=== PATIENT | male | born 1960 | race Caucasian/White ===

== ENCOUNTER 2023-12-06 10:22 | Day surgery (SDC) | payer OTHER, SELFPAY ==
[2023-11-30 08:25] VITALS: BMI 24.5
[2023-11-30 09:15] LABS: INR 3.01; PT 31.2 Sec (11.4-14.6)
[2023-11-30 09:36] LABS: % Basophils 0.4 % (0-2); % Eosinophils 1.4 % (0-6); % Immature Granulocytes 0.4 % (0-0.5); % Lymphocytes 25.9 % (20.5-51.1); % Monocytes 6.7 % (1.7-9.3); % Neutrophils 65.2 % (42.2-75.2); Absolute Eosinophils 0.1 10^3/uL (0-0.7); Absolute Lymphocytes 1.5 10^3/uL (1.2-3.4); Absolute Monocytes 0.4 10^3/uL (0.1-0.6); Absolute Neutrophils 3.7 10^3/uL (1.4-6.5); Hematocrit 47.6 % (39.0-52.0); Hemoglobin 16.3 g/dL (13.0-18.0); Mean Corp Hgb Conc. 34.2 g/dL (33.0-37.0); Mean Corpuscular Hgb 31.5 pg (27.0-31.0); Mean Corpuscular Volume 91.9 fL (80.0-94.0); Mean Platelet Volume 10.8 fL (7.4-10.4); Nucleated Red Blood Cells % 0 % (-); Platelet Count 189 10^3/uL (130-400); Red Blood Cell Count 5.18 10^6/uL (4.70-6.10); Red Cell Dist. Width 13.2 % (11.5-14.5); White Blood Cell Count 5.7 10^3/uL (4.8-10.8)
[2023-11-30 09:41] LABS: ALT (SGPT) 37 U/L (0-50); AST (SGOT) 37 U/L (17-59); Albumin 4.8 g/dl (3.5-5.0); Alkaline Phosphatase 58 U/L (38-126); Blood Urea Nitrogen 20 mg/dl (9-20); Calcium 9.8 mg/dl (8.4-10.2); Carbon Dioxide 27 mmol/L (22-30); Chloride 106 mmol/L (98-107); Estimated Creatinine Clearance 96 ml/min; Glucose 89 mg/dl (70-99); Magnesium 2.1 mg/dl (1.6-2.3); Potassium 4.3 mmol/L (3.5-5.1); Sodium 146 mmol/L (135-145); Total Bilirubin 1.3 mg/dl (0.2-1.3); Total Protein 7.7 g/dl (6.3-8.2); eGFR > 60.00
[2023-12-06] VITALS (26 sets, daily range): BP systolic 81–126; BP diastolic 52–111; BMI 24.5
[2023-12-06 10:53] LABS: INR 2.41; PT 26.1 Sec (11.4-14.6)
[2023-12-06 17:34] LABS: ACT-LR - POC 210 Seconds (116-155)
--- NOTE | 2023-12-06 17:57 | ITS.CL.ABL ---
Nutritional Health Coach - Ablation
Ablation
Procedure Report:
ELECTROPHYSIOLOGIC STUDY AND POSSIBLE ABLATION
DATE: December 06, 2023
Primary Care Provider: Dr Francisco Baires
Primary Sizing End Bander: Dr. Beny House
INDICATION:
Symptomatic atrial tachycardia.
He has a complex cardiovascular history. This includes:
�������- 06/20 PVI + right atrial flutter ablation
�������- 11/20 CAFE and LA tachycardia ablation with no recurrent arrhythmias for approx 2 years off AAD Rx
�������- 06/22 MV repair and septal myectomy in the setting of worsening MR with HOCM
�������- 06/22 Redo sternotomy and [place] MV replacement for post MV repair mod-severe MR and BENY
�������- Recurrent AF and AT (left atrial) after redo sternotomy, CV'ed 08/22 at which time amio was started and CV'ed again 09/13/14
�������- Amiodarone was discontinued December 2014 but he recurred with atrial tachycardia Feb 2015 and was placed on dronederone. He did well for a short period of time, but more recently he has begun having higher burden of symptomatic atrial
fibrillation and atrial tachycardia and has required several cardioversions.
�������He returned to the laboratory on March 09, 2017 when he was found to have left atrial tachycardia. He underwent mapping and ablation. During elective physiologic study he was given escalating dose isoproterenol and programmed electrical
stimulation was performed but no arrhythmias could be induced in the baseline state.
HISTORY: See H and P.
Symptomatic AT, poorly controlled with attempted medical therapy
HAS-BLED: 1
Age
CHADSVASc: 0 (he has mechanical Mitral Valve and HOCM)
PRESENTING RHYTHM: AT
HISTORY: See H and P.
Symptomatic AF, poorly controlled with attempted medical therapy.
ANTIARRHYTHMIC DRUG: Dronederone
ANTICOAGULATION: warfarin with goal INR 2.5 - 3.5
'TIME-OUT': called and confirmed.
SEDATION/ANESTHESIA: provided via the anesthesia department using general anesthesia.
PROCEDURE:
Ultrasound Guidance performed by mi was utilized for femoral venous Vascular Access b/l.
A decapolar CS catheter was placed within the CS for mapping and pacing.
The intracardiac ultrasound catheter was positioned in the RA for continuous intracardiac ultrasound imaging.
Heparin bolus and infusion to target ACT at 300 -350 seconds was administered. Transseptal puncture was performed. This entailed advancing a sheath with dilator into the superior vena cava and withdrawing both (monitoring intracardiac ultrasound,
fluoroscopy and tip pressure) with the tip oriented toward the atrial septum. The fossa ovalis was engaged (indicated by sudden displacement of the sheath tip as well as tenting of the fossa seen on intracardiac ultrasound).
RF transseptal system was used. Left atrial catheter position was confirmed by echocardiographic imaging and fluoroscopy. Pressure monitoring demonstrating LA pressure waveforms (LA mean pressure 11 mm Hg).
Mapping was performed with the Haloband multipolar grid catheter. Activation mapping as well as entrainment mapping defines counterclockwise mitral annular flutter rotating around the mechanical mitral valve.
RF ablation catheter was then substituted for the multipolar mapping catheter. RF energy was delivered in a line from the base of the left atrial appendage down to the mitral valve annulus. This slowed the flutter cycle length from 240 to 250 ms
without a change in the endocardial activation sequence. However surface ECG atrial electrogram changed. Additional RF application was delivered from the left inferior pulmonary vein down to the mitral valve annulus and also RF applications were
delivered along the ridge between the left sided pulmonary veins and in the left atrial appendage targeting the area of the ligament of Bernard which showed marked fractionation during mapping. There is no change in cycle length or activation
sequence. Remapping with the multipolar catheter found in absence of endocardial voltages at the mitral valve annulus yet activation continue to rotate counterclockwise ' jumping' the a line of ablation. It is felt that at this point activation
was occurring epicardially along the ablation line.
At previous ablation there was left atrial dome/roof ablation performed yet mapping now shows reconnection. The Farawave PFA ablation catheter was then substituted and pulse electric field energy was delivered to the dome and upper portion of the
posterior wall of the left atrium to isolate the roof and upper portion of the posterior wall of the left atrium. Additional PFA energy was delivered to the bello between the left superior and left inferior pulmonary vein as there is evidence of
electrical reconnection. Additional PFA was delivered at the area of the left superior and left inferior pulmonary vein towards the ridge and down towards the mitral valve annulus but there is no change in the tachycardia.
Catheters were then withdrawn from the left atrium.
The coronary sinus was then engaged with the ablation catheter and attempts were made to advance the ablation catheter adjacent to the endocardial line of mitral valve annular ablation. Despite multiple attempts in the use of different sheaths the
catheter could not advance to this area as the coronary sinus rapidly tapered prior to advancing to this distal location. No ablation was performed within the coronary sinus.
Cardioversion then restored sinus rhythm
I.C.E. :
Pre-Ablation Post-Ablation
LVEF: 55 % 55 %
WMA: none none
Pericardial effusion: none none
COMPLICATIONS:
none
SUMMARY:
- Reisolation of the pulmonary veins at the left PV bello
- Additional lesion set to include ablation of the left atrial posterior wall.
- Mapping and ablation of second tachycardia, mitral valve annular flutter
- 3-D Electroanatomical Mapping
- Intracardiac Ultrasound
Post ablation, I discussed today's findings and results with the patient's , Jamila.
RECOMMENDATIONS:
- Observe in monitored bed.
- Maintain oral anticoagulation.
- Discontinue dronederone and observe off antiarrhythmic drug. If he recurs, can consider dofetilide prior to moving towards amiodarone.
- Continue cardiovascular care with Dr House
Copy to:
Dr Francisco Baires
Dr. Beny House
[2023-12-06] MEDS: NEO-SYNEPHRINE 250 IV (18:29)
--- NOTE | 2023-12-06 18:30 | PTCARENOTE ---
Dr Garcia at bedside speaking to pt. Aware that rex gtt has been started as per anesthesia. Currently @ 50 mcg/min. Will wean gtt as able keeping MAP >65 as per .
[2023-12-06] MEDS: LASIX 40 MG IV (18:31)
--- NOTE | 2023-12-06 20:00 | PTCARENOTE ---
Pt with urge to void but unable to. Bladder scan showing 639 ml despite recent straight cath at 1855. Dr Augie Garcia called and order received to place spencer catheter.
--- NOTE | 2023-12-06 20:41 | PTCARENOTE ---
received the patient from the laborer/grade check. AAOx3. SR on tele 60s-70s. bp 91/66. patient states feeling well. bedrest. R groin figure 8 sutures intact. dressing CDI. + pulses/no edema. reviewed plan of care with patient and spouse at the bedside. Spencer
placed by laborer/grade check nurse. verified with Dr. Bruno on d/c time of spencer catheter. okay to d/c at 10pm when patient is off bedrest.
[2023-12-06] MEDS: LIPITOR 10 MG PO (21:16)
--- NOTE | 2023-12-06 21:41 | PTCARENOTE ---
Right groin figure of 8 sutures removed with no issues. gauze/Tegaderm applied.
--- NOTE | 2023-12-06 23:14 | PTCARENOTE ---
tj d/c'd per order. patient oob to the BR. steady on his feet. denies any lightheadedness/dizziness. HR 70. bp 90/68 (77). R groin site stable. educated patient to inform RN with any changes overnight. call mejias within reach.
[2023-12-07] VITALS: BP 76/62
[2023-12-07 00:01] VITALS: BP 85/57
[2023-12-07 03:00] VITALS: BP 98/74
[2023-12-07 04:00] VITALS: BP 89/57
[2023-12-07 04:35] LABS: Hematocrit 38.6 % (39.0-52.0); Hemoglobin 13.3 g/dL (13.0-18.0); Mean Corp Hgb Conc. 34.5 g/dL (33.0-37.0); Mean Corpuscular Hgb 31.4 pg (27.0-31.0); Mean Platelet Volume 10.9 fL (7.4-10.4); Platelet Count 161 10^3/uL (130-400); Red Blood Cell Count 4.24 10^6/uL (4.70-6.10); Red Cell Dist. Width 13.4 % (11.5-14.5); White Blood Cell Count 8.2 10^3/uL (4.8-10.8)
[2023-12-07 04:43] LABS: INR 3.21; PT 32.8 Sec (11.4-14.6)
[2023-12-07 05:03] LABS: Blood Urea Nitrogen 25 mg/dl (9-20); Calcium 8.4 mg/dl (8.4-10.2); Carbon Dioxide 22 mmol/L (22-30); Chloride 108 mmol/L (98-107); Estimated Creatinine Clearance 96 ml/min; Glucose 153 mg/dl (70-99); Magnesium 1.8 mg/dl (1.6-2.3); Sodium 142 mmol/L (135-145); eGFR > 60.00
[2023-12-07 05:09] LABS: Potassium 4.5 mmol/L (3.5-5.1)
--- NOTE | 2023-12-07 06:39 | PTCARENOTE ---
no urine output since spencer catheter removed. patient denies any discomfort. bladder scan 225. patient ambulating in room independently. no lightheadedness/dizziness. R groin site stable.
[2023-12-07 07:22] VITALS: BP 105/76
--- NOTE | 2023-12-07 08:13 | W.PN.CARDCBS ---
Addendum entered and electronically signed by Cezar Garcia MD 12/07/23 10:49:
Patient seen, interviewed and examined by me.
Well-appearing, no acute distress
Regular rate and rhythm with Mech S1, normal S2, no S3 no S4. There is a grade 1/6 apical holosystolic murmur and no rubs. PMI is normally placed.
Lungs are clear to auscultation bilaterally without wheezes rales or rhonchi.
Abdomen soft nontender nondistended with normoactive bowel sounds
Extremities show trace pretibial edema bilaterally no clubbing or cyanosis.
Neurologic exam is grossly nonfocal.
Telemetry since his ablation and cardioversion has demonstrated sinus rhythm with some atrial ectopy. There has been no recurrence of atrial flutter or atrial tachycardia.
I had a long discussion with the patient today regarding yesterday's electrophysiologic findings as well as ablation results. We discussed in detail that we were unable to completely interrupt the mitral valve annular flutter circuit as
described in the ablation note. I am hopeful that modification in this area as well as additional ablation in the left atrium will result in a reduced likelihood of recurrence of atrial arrhythmias. I prefer we stop dronedarone and observe off
antiarrhythmic drug therapy. Should he recur with atrial arrhythmias I do not think dronedarone would be all that useful as it has not been very useful in the past. We could try amiodarone. We could investigate the use of a type Ic agent. The
concern however being that he does have hypertrophic cardiomyopathy history. If wall thickness is less than 1.5 cm and QT interval allows we could consider a type Ic drug During inpatient drug loading.
He understands to maintain warfarin with goal INR between 2.5 and 3.5.
All of his questions have been answered and he is stable for discharge to home today.
I also have communicated all of this to his primary haz tech, Dr. House.
Original Note:
Today's Communication / Plan
-
post redo ablation
stable for d/c home
Impression / Plan
-
Primary Care Provider: Dr Francisco Baires
Primary Beam Machine Operator: Dr. Omega House
Impression:
Symptomatic atrial tachycardia
- 06/20 PVI + right atrial flutter ablation
������ �- 11/20 CAFE and LA tachycardia ablation with no recurrent arrhythmias for approx 2 years off AAD Rx
������ �- 06/22 MV repair and septal myectomy in the setting of worsening MR with HOCM
��� ����- 06/22 Redo sternotomy and [facility] MV replacement for post MV repair mod-severe MR and OMEGA
���� ��- Recurrent AF and AT (left atrial) after redo sternotomy, CV'ed 08/22 at which time amio was started and CV'ed again 09/13/14
-02/2017 LA tachycardia ablation
LBBB
HTN
Hyperlipidemia
Pulmonary HTN
HOCM with surgical repair (see above)
Plan:
post redo PVI, PW and MV flutter ablation 12/06/23
urinary retention post procedure, spencer removed at 10pm last night, voided 125cc this am
groin stable
tele SR 1deg AVB, LBBB, occ PVC's
Continue OAC warfarin with goal INR 2.5 - 3.5, INR 3.21 this am
Stop Multaq
Activity restrictions reviewed
f/u Dr. House in 1 mo
Home today
Progress Note - Beam Machine Operator
Subjective
Date of Service: December 07, 2023
denies cp, sob, voiding this am
Objective
Labs:
12/07/23 04:06
12/07/23 04:06
Labs
Hgb 13.3 g/dL (13.0-18.0) 12/07/23 04:06
Hct 38.6 % (39.0-52.0) L 12/07/23 04:06
Plt Count 161 10^3/uL (130-400) 12/07/23 04:06
PT 32.8 Sec (11.4-14.6) H 12/07/23 04:06
INR 3.21 12/07/23 04:06
Sodium 142 mmol/L (135-145) 12/07/23 04:06
Potassium 4.5 mmol/L (3.5-5.1) 12/07/23 04:06
BUN 25 mg/dl (9-20) H 12/07/23 04:06
Creatinine 0.8 mg/dL (0.7-1.3) 12/07/23 04:06
Glucose 153 mg/dl (70-99) H 12/07/23 04:06
Vital Signs and I&O:
Vital Signs
Temp Pulse Resp BP Pulse Ox
98.4 F 73 18 105/76 97
12/07/23 04:14 12/07/23 07:30 12/07/23 04:14 12/07/23 07:22 12/07/23 07:30
Vital Signs
Temp Pulse Resp BP Pulse Ox
98.4 F 73 18 105/76 97
12/07/23 04:14 12/07/23 07:30 12/07/23 04:14 12/07/23 07:22 12/07/23 07:30
Intake & Output
12/05/23 12/06/23 12/07/23 12/08/23
06:59 06:59 06:59 06:59
Intake Total 2750 / 2750
Output Total 1900 / 1900 125 / 125
Balance 850 / 850 -125 / -125
Physical Exam
Physical Exam
NAD, AOX3
S1, S2, RRR
CTAB, non labored, no wheeze
SNTND bsx4
R fem site c/d/i no HT, soft
[2023-12-07] MEDS: COUMADIN 7.5 MG PO (08:15)
[2023-12-07 08:39] LABS: ACT-LR - POC > 397 Seconds (116-155)
[2023-12-07 08:39] LABS: ACT-LR - POC > 397 Seconds (116-155)
[2023-12-07 08:39] LABS: ACT-LR - POC > 397 Seconds (116-155)
[2023-12-07 08:39] LABS: ACT-LR - POC > 397 Seconds (116-155)
[2023-12-07 08:39] LABS: ACT-LR - POC > 397 Seconds (116-155)
[2023-12-07 08:39] LABS: ACT-LR - POC > 397 Seconds (116-155)
[2023-12-07 08:40] LABS: ACT-LR - POC > 397 Seconds (116-155)
--- NOTE | 2023-12-07 10:21 | PTCARENOTE ---
Pt received this am oob ad zack, gait steady. Denies any pain or discomfort. Voided 125ml clear dago urine. Right groin site dressing dry and intact with no hematoma. Pt discharged to home with his . Discharge instructions given and reviewed
with good understanding.
--- NOTE | 2023-12-07 11:27 | W.DS.TRANS ---
DC Summary - Groundhand
-
Discharge Instructions:
Sleep Apnea Risk Low
Discharge Diagnosis/Procedures AFib, s/p ablation
Diet Low Cholesterol
Driving Restrictions No driving for 24 hours
Instructions:
Stand-Alone Forms: DC Instructions- Cath/EP Lab
Changes to Home Medications: Yes
Discharge Medications:
DC Medications w/original date entered in [facility]
atorvastatin 10 mg tablet 10 mg PO QPM 03/09/17
multivitamin 1 tab PO QPM 12/06/23
warfarin 5 mg tablet (Jantoven) 5 mg PO SUTUWETHFRSA 12/06/23
warfarin 7.5 mg tablet (Jantoven) 7.5 mg PO MO 12/06/23
Home Medication Changes
stopped multaq
Pending Results: No
== END 2023-12-07 10:02 | disposition home or self-care (01) ==
LOC: CATH 10:22
PROVIDERS: Nurse Practitioner; ATTENDING PHYSICIAN Internal Medicine Cardiovascular Disease; FAMILY PHYSICIAN Family Medicine; OTHER PHYSICIAN Internal Medicine Cardiovascular Disease
DX: I48.91 Unspecified atrial fibrillation (principal); I47.19 Other supraventricular tachycardia; E78.5 Hyperlipidemia, unspecified; I10 Essential (primary) hypertension; I27.20 Pulmonary hypertension, unspecified; I44.7 Left bundle-branch block, unspecified; I48.92 Unspecified atrial flutter; I42.1 Obstructive hypertrophic cardiomyopathy; I49.1 Atrial premature depolarization; Z98.890 Other specified postprocedural states; I42.2 Other hypertrophic cardiomyopathy; Z95.2 Presence of prosthetic heart valve; Z79.01 Long term (current) use of anticoagulants; Z79.899 Other long term (current) drug therapy
CPT/HCPCS: C1730; C1894; C1893; C1892; C1759; 36415; 80048; 80053; 83735; 85025; 85027; 85347; 85610; 86850; 86900; 86901; 93005; 93655; 93656; 93657; C1732; C1733; C1766

== ENCOUNTER 2023-12-08 00:16 | Inpatient (IN) | payer OTHER, SELFPAY ==
[2023-12-07 17:33] VITALS: BP 143/91
[2023-12-07 17:46] LABS: Urine Albumin Trace (Neg - Trace); Urine Bilirubin Negative (Negative); Urine Character Clear (Clear); Urine Color Yellow; Urine Glucose Negative (Negative); Urine Ketone Trace (Negative); Urine Leukocyte Trace (Negative); Urine Nitrite Negative (Negative); Urine Occult Blood Negative (Negative); Urine Urobilinogen Negative (Neg - 1+)
[2023-12-07 18:03] LABS: Urine Bacteria Few (Negative); Urine Red Blood Cell 0-2 /HPF (0-2); Urine Squamous Cell 0-2 /LPF (Few)
[2023-12-07 20:05] VITALS: BMI 26.4
[2023-12-07 20:13] VITALS: BP 116/83
[2023-12-07 20:22] LABS: % Basophils 0.3 % (0-2); % Eosinophils 0.4 % (0-6); % Immature Granulocytes 0.4 % (0-0.5); % Lymphocytes 22.5 % (20.5-51.1); % Monocytes 8.8 % (1.7-9.3); % Neutrophils 67.6 % (42.2-75.2); Absolute Lymphocytes 2.6 10^3/uL (1.2-3.4); Absolute Neutrophils 7.7 10^3/uL (1.4-6.5); Hematocrit 41.3 % (39.0-52.0); Hemoglobin 14.3 g/dL (13.0-18.0); Mean Corp Hgb Conc. 34.6 g/dL (33.0-37.0); Mean Corpuscular Hgb 32.6 pg (27.0-31.0); Mean Corpuscular Volume 94.1 fL (80.0-94.0); Mean Platelet Volume 10.4 fL (7.4-10.4); Nucleated Red Blood Cells % 0 % (-); Platelet Count 152 10^3/uL (130-400); Red Blood Cell Count 4.39 10^6/uL (4.70-6.10); Red Cell Dist. Width 13.5 % (11.5-14.5); White Blood Cell Count 11.4 10^3/uL (4.8-10.8)
[2023-12-07 20:48] LABS: ALT (SGPT) 34 U/L (0-50); AST (SGOT) 67 U/L (17-59); Albumin 4.5 g/dl (3.5-5.0); Alkaline Phosphatase 44 U/L (38-126); Blood Urea Nitrogen 26 mg/dl (9-20); Calcium 8.9 mg/dl (8.4-10.2); Carbon Dioxide 26 mmol/L (22-30); Chloride 102 mmol/L (98-107); Estimated Creatinine Clearance 90 ml/min; Glucose 97 mg/dl (70-99); Potassium 4.2 mmol/L (3.5-5.1); Sodium 139 mmol/L (135-145); Total Bilirubin 1.7 mg/dl (0.2-1.3); eGFR > 60.00
[2023-12-07] MEDS: TYLENOL 1000 MG PO (20:49)
[2023-12-07] MEDS: NSS 1000 IV (20:51)
[2023-12-07 21:00] VITALS: BP 120/81
[2023-12-07 22:00] VITALS: BP 119/77
[2023-12-07 23:04] VITALS: BP 119/87
--- NOTE | 2023-12-07 23:18 | ED.GENMED ---
History of Present Illness
General
Chief Complaint: Fever
Source: patient and records
Exam Limitations: none
Time Seen by Provider: 12/07/23 20:18
Nursing documentation reviewed up to this point in time: agreed with
History of Present Illness
History of Present Illness:
Patient is a 63-year-old male who had an ablation yesterday that took approximately 4 hours and subsequently had difficulty urinating during the night and had to be catheterized 3-4 times. Patient then developed a fever this evening around 3 to 4
PM. Patient denies any GI symptoms, nasal congestion, cough or sore throat. Patient does admit to dysuria, frequency and urgency but no hematuria. Patient has not had prostate issues in the past. Patient started to have fever and chills with a
temp of 99.5 and was referred to the emergency department.
Past History
Past History
ED Past Medical History: Arrthythmia (Atrial fibrillation) and Other (Cardiomyopathy, right bundle branch block, mitral regurgitation)
Social History
Tobacco: Non-smoker
Review of Systems
Review of Systems
All Other Systems: ROS reviewed and negative except as documented in HPI and ROS
Constitutional: Reports fever, fatigue and chills
EENT: Reports no symptoms
Respiratory: Reports no symptoms
Cardiac: Reports no symptoms
ABD/GI: Reports no symptoms
: Reports dysuria, frequency and urgency; Denies bleeding, dark urine or discharge
Musculoskeletal: Denies back pain
Skin: Reports no symptoms
Neurological: Reports no symptoms
Hematologic/Lymphatic: Reports no symptoms
Phy Exam
Physical Exam
Physical Exam:
Physical Exam
General: No apparent distress, alert and appropriate, well nourished, well hydrated
HENT: Normocephalic, supple with no lymphadenopathy, no thyromegaly
Eyes: Clear sclera, conjuctiva without injection
Heart: Regular rhythm and rate. No S3, S4. No murmur. No NVD
Lungs: No respiratory distress, no stridor, lung sounds clear and equal bilaterally
Abdomen: Soft, nontender, no organomegaly, no CVA tenderness, BS good
Neuro: Alert and oriented x 3, CN II - XII intact, no motor focality, no cerebellar dysfunction
Skin: Right inguinal region has a healing puncture site without any signs of cellulitis but surrounding ecchymosis
Psychiatric: well kept. interactive and cooperative
Extremities: No edema, cyanosis, tenderness, Good and equal peripheral pulses.
Course
Orders/Labs/Results
Orders:
Orders
12/07/23 17:39
Urinalysis Reflex To Culture Urgent
Date Specimen was Collected: 12/07/23
Time Specimen was Collected: 17:35
Urine Microscopic Reflex Cult Urgent
12/07/23 20:12
CMP [Comprehensive Metabolic Panel] Urgent
Complete Blood Count/With Diff Urgent
12/07/23 20:40
0.9% Sodium Chloride 1000 ml [Nss] 1,000 ml IV BOLUS
Acetaminophen [Tylenol] 1,000 mg PO NOW STA
12/07/23 23:06
Piperacillin/Tazo 4.5 Gram [Zosyn] 4.5 gram in 100 ml IV NOW
Vancomycin [Vancocin] 2,000 mg 0.9% Sodium Chloride 500 ml [Nss] 500 ml IV NOW
12/07/23 23:15
Blood Culture Q30M
WEN Source: Blood/Venous
Specimen Description:
12/07/23 23:45
Blood Culture Q30M
WEN Source: Blood/Venous
Specimen Description:
Abnormal Lab Results
12/07/23 12/07/23
17:39 20:12
WBC 11.4 H 10^3/uL
(4.8-10.8)
RBC 4.39 L 10^6/uL
(4.70-6.10)
MCV 94.1 H fL
(80.0-94.0)
MCH 32.6 H pg
(27.0-31.0)
Absolute Neuts (auto) 7.7 H 10^3/uL
(1.4-6.5)
Absolute Monos (auto) 1.0 H 10^3/uL
(0.1-0.6)
BUN 26 H mg/dl
(9-20)
Total Bilirubin 1.7 H mg/dl
(0.2-1.3)
AST 67 H U/L
(17-59)
Urine Ketones Trace A
(Negative)
Leukocyte Esterase Rfl Trace A
(Negative)
Urine Bacteria (Reflex) Few A
(Negative)
12/07/23 20:12
12/07/23 20:12
Vital Signs
Initial and Last Documented VS:
Initial Vital Signs
Temp Pulse Resp BP Pulse Ox
99.3 F 55 18 143/91 99
12/07/23 17:33 12/07/23 17:33 12/07/23 17:33 12/07/23 17:33 12/07/23 17:33
Last Documented Vital Signs
Temp Pulse Resp BP Pulse Ox
98.5 F 70 25 119/87 94
12/07/23 22:29 12/07/23 22:45 12/07/23 22:45 12/07/23 23:04 12/07/23 23:04
*Radiology
Radiology exam reviewed: other (na)
*Pulse Oximetry
Patient hypoxic: no
*EKG
Interpreted by ED Provider?: NA
*Rn Invasive Interpretation
Rate: normal
Interpretation: normal
Heart Rate: 64
Rhythm: sinus
*Critical Care Note
Total Time (30-74mins, 75-104mins- exclusive of procedures): Not Applicable
Update Note
Update Note:
Patient's urine is possibly a reason for the fever but not overwhelmingly so. Given the fact that the patient recently had instrumentation of his heart but no real focus for the infection the patient will be admitted.
ED Attending Note
-
Portions of this chart may have been created with voice recognition software.� Occasional wrong word or��sound alike� substitutions may have occurred due to the inherent limitations of voice recognition software.
Discharge Plan
Departure
Patient Disposition: Admit
Date of Disposition: 12/07/23
Time of Disposition: 23:23
Admit to: Telemetry
Admit to doctor: Hospitalist
Presentation/result/management discussed w/ accepting MD/DO: Cardiology
Patient with high blood pressure during this ER visit?: Yes
Condition: Fair
Covid-19: Not Applicable
Discharge Problem:
Fever, Status post cardiac ablation
Prescriptions:
No Action
atorvastatin 10 MG tablet
10 mg PO QPM
warfarin [Jantoven] 7.5 mg Tablet
7.5 mg PO MO
Rx Instructions:
took 5mg this morning
warfarin [Jantoven] 5 mg Tablet
5 mg PO SUTUWETHFRSA
multivitamin Tablet
1 tab PO QPM
Referrals:
Conchita Marquez DO [Family Provider] -
Interventions
Interventions:
*Risk Screen - Suicide Last Done: 12/07/23 17:33
*General Assessment Last Done: 12/07/23 17:33
*Neglect/Abuse Screening Last Done: 12/07/23 17:33
ED- Fall Risk Assessment Last Done: 12/07/23 20:05
*ED COVID-19 Vaccine History Last Done: 12/07/23 17:33
ED-Male Genitourinary Assessment Last Done: 12/07/23 20:05
ED- Neurological Assessment Last Done: 12/07/23 20:05
ED-Skin Assessment Last Done: 12/07/23 20:05
Discharge Date and Time
Print Language: NEPALI
[2023-12-07] MEDS: ZOSYN 100 IV (23:28)
[2023-12-08] VITALS (20 sets, daily range): BP systolic 83–127; BP diastolic 57–89; BMI 24.4; BMI 26.4
[2023-12-08] MEDS: VANCOCIN 540 MG IV (00:12)
--- NOTE | 2023-12-08 00:13 | HPS.HSE ---
Family Physician
-
Family Physician: Conchita Marquez DO
Chief Complaint
-
Chills, dysuria
History of Present Illness
This is a 63-year-old with past medical history of atrial fibrillation, mitral valve insufficiency status post mechanical mitral valve repair who presents to the emergency department postop day #1 status post ablation for atrial fibrillation with
chills and dysuria.
Patient had an elective ablation procedure done yesterday. He did stay overnight in the hospital after the ablation. He reportedly had acute episode of urinary retention requiring 3 times straight cath yesterday. He was discharged home this
morning. At home he was able to urinate by himself. He reports having dysuria with urination. He also reports having chills. Denies any hematuria. Denies any flank pain. Patient denies having any chest pain, nausea vomiting or diaphoresis. He
denies palpitations lightheadedness or dizziness.
In the emergency department he had a low-grade temp of 99, blood pressure was 120/67 and was satting 98% on room air. Telemetry shows a sinus arrhythmia and episodes of bradycardia to the 40s. Patient was asymptomatic. CBC with white count of
11.4 but otherwise unremarkable. Chemistries with electrolytes BUN/creatinine unremarkable. He had a slight increase in AST and total bili. UA shows a few bacteria trace leukocyte esterase and a few WBCs. Negative nitrite
Medical History
Past Medical History
Past Medical History: Reports Arrhythmia (Atrial fibrillation status post ablation) and Valvular Disease (Mitral insufficiency status post mechanical mitral valve repair)
Past Surgical History: Reports Cardiac (Mechanical mitral valve repair)
Social History
Tobacco: Non-smoker
Alcohol: Occasional
Drug: None
Personal:
Living: With Family
Employment: Employed
Family History
Family History: Not pertinent
Allergies / Home Medications
Allergies reflects when Allergies were last updated in [facility].
Home Medications with original date entered in [facility]
Allergy/Medication List:
Allergies
Allergy/AdvReac Type Severity Reaction Status Date / Time
No Known Allergies Allergy Verified 12/06/23 10:49
Home Medications
atorvastatin 10 mg tablet 10 mg PO QPM 03/09/17
multivitamin 1 tab PO QPM 12/06/23
warfarin 5 mg tablet (Jantoven) 5 mg PO SUTUWETHFRSA 12/06/23
warfarin 7.5 mg tablet (Jantoven) 7.5 mg PO MO 12/06/23
Review of Systems
-
Constitutional: Reports Chills
EENT: Reports No Symptoms
Respiratory: Reports No Symptoms
Cardiac: Reports No Symptoms
Abdomen/GI: Reports No Symptoms
: Reports Dysuria
Musculoskeletal: Reports No Symptoms
Skin: Reports No Symptoms
Neurological: Reports No Symptoms
Endocrine: Reports No Symptoms
Hematologic/Lymphatic: Reports No Symptoms
Psych: Reports No Symptoms
Physical Exam
Vital Signs
Vital Signs
Temp Pulse Resp BP Pulse Ox
98.5 F 61 14 119/87 96
12/07/23 22:29 12/07/23 23:45 12/07/23 23:45 12/07/23 23:04 12/07/23 23:45
Physical Exam
General: Well Developed, Well Nourished, No Apparent Distress and Comfortable
HEENT: NormoCephalic, Anicteric, Moist mucous membranes and Atraumatic
Respiratory: Clear
Cardiac: S1/S2 and Regular Rhythm
Breast: Deferred by me
GI: Soft, Non Tender, Non Distended and Normal Bowel Sounds
Rectal: Deferred by Provider
Genito-urinary: No costovertebral tender
Musculoskeletal: No Clubbing, No Cyanosis and No Edema
Skin: Warm
Neuro: AO x 3
Hematologic/Lymphatic: No Lymphadenopathy
Psych: Calm
Laboratory Results
-
12/07/23 20:12
12/07/23 20:12
Laboratory Results
Total Bilirubin 1.7 mg/dl (0.2-1.3) H 12/07/23 20:12
AST 67 U/L (17-59) H 12/07/23 20:12
ALT 34 U/L (0-50) 12/07/23 20:12
Alkaline Phosphatase 44 U/L (38-126) 12/07/23 20:12
Data Reviewed
-
Medical Tests (Nuc Med, Echo, EKG etc): Image Personally Visualized and interpreted
Lab Data: Labs Reviewed by me
Old Records: Reviewed
Impression/Plan
-
IMPRESSION:
63-year-old with low-grade fever and dysuria 1 day status post ablation for atrial flutter. He has a mechanical valve. There is mild leukocytosis. UA is also mildly positive. There is concern for overall possibility of infection and given his
history of a mechanical valve. Multiple admit to observation for monitoring pending cultures.
PLAN:
1. Fever - UTI (recent catheterization) vs transient bactermia given procedure. Well appearing and stable. Sinus arrythmia with bradycardia on tele
- admit to telemetry
- blood and urine cultures sent
- continue vancomycin
- cefepime 2g q 12 for now
- monitor fever profile and cultures x 24/48 hours
2. AFIB - s/p ablation. Currently sinus with pacs and bradycardia
- telemetry
- off any agents pending f/u with cardiology
- on ac w/ coumadin
- cardiology consult
3. MVR
- continue coumadin, inr goal 2.5 - 3.5
Code Status - Full Code
[2023-12-08] MEDS: MAXIPIME 2000 MG IV (05:57)
[2023-12-08] MEDS: STERILE WATER FOR INJECTION 10 ML IV ×2 (05:57→18:08)
[2023-12-08 06:25] LABS: INR 4.53; PT 43.1 Sec (11.4-14.6)
[2023-12-08 06:32] LABS: Hematocrit 37.1 % (39.0-52.0); Hemoglobin 12.9 g/dL (13.0-18.0); Mean Corp Hgb Conc. 34.8 g/dL (33.0-37.0); Mean Corpuscular Hgb 32.8 pg (27.0-31.0); Mean Corpuscular Volume 94.4 fL (80.0-94.0); Mean Platelet Volume 10.9 fL (7.4-10.4); Platelet Count 142 10^3/uL (130-400); Red Blood Cell Count 3.93 10^6/uL (4.70-6.10); Red Cell Dist. Width 13.4 % (11.5-14.5); White Blood Cell Count 7.7 10^3/uL (4.8-10.8)
[2023-12-08 06:35] LABS: Blood Urea Nitrogen 19 mg/dl (9-20); Calcium 8.2 mg/dl (8.4-10.2); Carbon Dioxide 25 mmol/L (22-30); Chloride 108 mmol/L (98-107); Estimated Creatinine Clearance 103 ml/min; Glucose 96 mg/dl (70-99); Sodium 141 mmol/L (135-145); eGFR > 60.00
--- NOTE | 2023-12-08 08:16 | PHA.VAN.IN ---
Assessment
- Assessment
Renal Function: Appears similar to baseline
Concomitant Antimicrobials: cefepime
AUC Dosing Plan
- Dosing Variables
Dosing Weight (kg): 78.8
Dosing CrCl (ml/min): 103
Vd coefficient (L/kg): 0.7
- Empiric Dosing
Initial / Loading Dose: 2000mg - 12/07 00:12
Maintenance Regimen: Vanc 1000mg Q12H starting at 1800
Estimated AUC (mcg*h/mL): 422
Estimated Peak (mcg*h/mL): 27.5
Estimated Trough (mcg/ml): 10.2
Estimated Half Life (H): 7.7
- Monitoring
No levels ordered at this time: consider levels in next few days
Pharmacokinetics Vancomycin I
- -
Patient Age: 63
Patient Sex: Male
Vancomycin Day #: 1
Indication: Skin And Soft Tissue
Requesting Provider: Dr. Santos
Pertinent Antimicrobial Allergies:
NKDA
Height / Weight:
Height 5 ft 8 in
Actual Weight 78.8 kg
- Vital Signs / Lab Results
Temp Pulse Resp BP Pulse Ox
98.8 F 64 16 104/76 96
12/08/23 07:00 12/08/23 07:00 12/08/23 07:00 12/08/23 07:00 12/08/23 07:00
Lab Results - Hematology
12/07/23 12/08/23
20:12 06:03
WBC 11.4 H 7.7
Lab Results - Chemistry
12/07/23 12/08/23
20:12 06:03
BUN 26 H 19
Creatinine 0.8 0.7
Estimated Creat Clear 90 103
Albumin 4.5
Lab Results - Urine
12/07/23
17:39
Urine Nitrite (Reflex) Negative
Leukocyte Esterase Rfl Trace A
Urine WBC (Reflex) 6-10
Ur Squamous Epith Cells 0-2
Urine Bacteria (Reflex) Few A
--- NOTE | 2023-12-08 09:21 | W.PN.HOSP.TC ---
Today's Communication/Plan
-
Continue antibiotics pending cultures
Monitor for retention
Assessment / Plan
Assessment / Plan
Impression:
Urinary tract infection suspected catheter associated.
Persistent atrial fibrillation status post ablation.
Severe mitral valve regurgitation status post mechanical valve replacement 2014.
Anticoagulation with Coumadin
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
Plan:
UTI suspect complicated with component of retention over the recent hospitalization when patient required catheterization per
No evidence of sepsis or generalized symptoms.
Hemodynamically stable, nontoxic-appearing
Reports improvement of dysuria since initiation of antibiotics.
Monitor for retention
Broad-spectrum antibiotics: Vancomycin/cefepime pending blood and urine cultures.
Persistent atrial fibrillation
Status post ablation
Noted bradycardic in ED
Currently in sinus rhythm.
Not on antiarrhythmic or AV khadijah blocking agents currently.
Cardiology consultation pending
MVR
Anticoagulation with Coumadin
Noted with elevated INR at 4.5
Hold Coumadin tonight and follow INR daily adjusting dose while on antibiotics.
HOCM by history
Hemodynamically stable and compensated
Full code
DVT prophylaxis Coumadin.
Anticipated Discharge: 24 - 48 hours
Subjective/Interval History
-
Date of Service: December 08, 2023
Objective Data
-
Labs:
Laboratory Results
12/08/23
06:03
WBC 7.7
Hgb 12.9 L
Hct 37.1 L
Plt Count 142
PT 43.1 H
INR 4.53
Sodium 141
Potassium 4.0
Chloride 108 H
Carbon Dioxide 25
BUN 19
Creatinine 0.7
Glucose 96
Calcium 8.2 L
Vital Signs:
Vital Signs
Temp Pulse Resp BP Pulse Ox
98.8 F 64 16 104/76 96
12/08/23 07:00 12/08/23 07:00 12/08/23 07:00 12/08/23 07:00 12/08/23 07:00
Physical Exam
-
General: Well Developed and No Apparent Distress
HEENT: Normocephalic, Atraumatic and Moist Mucous Membranes
Respiratory: Clear to Auscultation
Cardiac: Regular Rhythm and S1/S2; Negative Murmur, Rub or Gallop
GI: Soft, Nontender, Nondistended and Normal Bowel Sounds; Negative Organomegaly
Rectal: Deferred by Provider
Musculoskeletal: No Clubbing, No Cyanosis and No Edema
Skin: Negative Rash
Neuro: Nonfocal/Grossly Intact
--- NOTE | 2023-12-08 10:22 | CON.CAR ---
Addendum entered and electronically signed by Martin Sanchez MD 12/08/23 17:25:
I saw and examined the patient.
The Lip And Gate Builder's note was reviewed and I agree with the note.
Comment: Briefly, 63-year-old man past medical history of mechanical mitral valve replacement and atrial fibrillation/tachycardia who underwent ablation earlier this week and presents with dysuria concerning for UTI
Asymptomatic from a cardiovascular standpoint
Maintaining sinus rhythm on telemetry
INR was elevated this morning at 4.5, plan to hold warfarin this evening and monitor INR going forward
Appreciate infectious disease input regarding management of antibiotics
Original Note:
Consultation
Consultation Request
Date/Time Consultation Requested: 12/08/23 at 0140
Date/Time Consultation Performed: 12/08/23 at 1230
Requesting Provider: Dr. Wade
Performing Provider: Dr. Augie Garcia
Reason for Consultation: Possible UTI, recent ablation, h/o MVR
Medical History
-
History of Present Illness:
Patient came to [facility] last night with dysuria after recent ablation and was admitted for possible UTI and cardiology is consulted for recent ablation and h/o mechanical MVR. Patient has a h/o MR and MVP and had ablations in 2012 and then had MV
surgery in 2014. Patient had MV repair and then on post-op echo prior to d/c was noted to have moderate to severe MR and was taken back to the OR for mechanical MV replacement. After redo sternotomy patient noted to have recurrent Afib/tach and was
CV'd and started on amiodarone and did well for years. He had another ablation in 2017 and then had another ablation this past Wednesday. Patient's case ended in the evening and the plan was made for overnight admission. Patient had urinary retention
and required straight cath. Patient with some dysuria prior to d/c on Wednesday, but felt well enough otherwise to go home. Within hours of being at home dysuria worsened and temp up to 99.5 degrees Fahrenheit at home so patient returned to [facility]. Mild
elevation in WBC to 11.4 that has improved with Vanco and cefepime overnight. Dysuria is a bit better. Blood and urine cultures pending. Remains in SR with PACs. INR up to 4.5.
PMH:
Recurrent symptomatic atrial tachycardia
s/p right atrial flutter ablation 06/2012
s/p CAFE and LA tachycardia ablation with no recurrent arrhythmias for approx 2 years off AAD Rx 11/2012
Recurrent AF and AT (left atrial) after redo sternotomy 06/2014, CV'ed 08/2014 at which time amio was started and CV'ed again 09/13/14
s/p LA tach ablation 02/2017
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
s/p MV Repair with 34 mm Ring and septal myectomy 06/2014
s/p redo sternotomy and mechanical MV replacement for most-MV repair mod to sev MR and BENY 06/2014
Chronic warfarin OAC managed by ATC
LBBB
HTN
Hyperlipidemia
Pulmonary HTN
HOCM with surgical repair (see above)
Past Medical History
Past Medical History: Other (in HPI)
Past Surgical History: Appendectomy and Cardiac (MV repair and subsequent MV replacement 2014, septal myomectomy, alutter ablation 2012, Atach ablation 2012 and 2017)
Social History
Tobacco: Non-Smoker
Alcohol: Occasional
Drug: None
Personal:
Living: Alone
Employment: Employed
Family History
Family History: CAD
Allergies / Home Medications
Allergy/AdvReac Type Severity Reaction Status Date / Time
No Known Allergies Allergy Verified 12/06/23 10:49
�Medication �Instructions �Recorded �Confirmed �Type
atorvastatin 10 mg tablet 10 mg PO QPM 03/09/17 12/07/23 History
multivitamin 1 tab PO QPM 12/06/23 12/07/23 History
warfarin 5 mg tablet (Jantoven) 5 mg PO SUTUWETHFRSA 12/06/23 12/07/23 History
warfarin 7.5 mg tablet (Jantoven) 7.5 mg PO MO 12/06/23 12/07/23 History
Review of Systems
-
History Source: Patient and Family ()
All other systems: Negative unless noted
Physical Exam
Vital Signs
Temp Pulse Resp BP Pulse Ox
98.8 F 64 16 104/76 96
12/08/23 07:00 12/08/23 07:00 12/08/23 07:00 12/08/23 07:00 12/08/23 07:00
GEN: NAD. AAOx3
HEENT: EOMI, MMM
LUNGS: CTA B/L, no wheezes or rales
CV: SR with PACs on tele. Reg with ectopy, S1/S2, click
ABD: soft, BS+, NT, ND
EXT: No clubbing, cyanosis, lesions or edema B/L
NEURO: Gross non-focal
SKIN: Warm, dry and pink. No rash
Lab Results
12/08/23 06:03
12/08/23 06:03
Impression / Plan
-
Primary Care Provider: Dr Francisco Baires
Primary Christian Counselor: Dr. Beny House
Impression:
Admitted with dysuria and possible UTI 12/07/23
s/p PVI with reisolation at left PV bello and additional lesions at left atrial posterior wall, mapping and ablation of second Atach/MV annular flutter 12/06/23
Recurrent symptomatic atrial tachycardia
s/p right atrial flutter ablation 06/2012
s/p CAFE and LA tachycardia ablation with no recurrent arrhythmias for approx 2 years off AAD Rx 11/2012
Recurrent AF and AT (left atrial) after redo sternotomy 06/2014, CV'ed 08/2014 at which time amio was started and CV'ed again 09/13/14
s/p LA tach ablation 02/2017
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
s/p MV Repair with 34 mm Ring and septal myectomy 06/2014
s/p redo sternotomy and mechanical MV replacement for most-MV repair mod to sev MR and BENY 06/2014
Chronic warfarin OAC managed by ATC
LBBB
HTN
Hyperlipidemia
Pulmonary HTN
HOCM with surgical repair (see above)
Plan:
-Patient came to [facility] last night with dysuria after recent ablation and was admitted for possible UTI and cardiology is consulted for recent ablation and h/o mechanical MVR. Patient has a h/o MR and MVP and had ablations in 2012 and then had MV
surgery in 2014. Patient had MV repair and then on post-op echo prior to d/c was noted to have moderate to severe MR and was taken back to the OR for mechanical MV replacement. After redo sternotomy patient noted to have recurrent Afib/tach and was
CV'd and started on amiodarone and did well for years. He had another ablation in 2017 and then had another ablation this past Wednesday. Patient's case ended in the evening and the plan was made for overnight admission. Patient had urinary retention
and required straight cath. Patient with some dysuria prior to d/c on Wednesday, but felt well enough otherwise to go home. Within hours of being at home dysuria worsened and temp up to 99.5 degrees Fahrenheit at home so patient returned to [facility]. Mild
elevation in WBC to 11.4 that has improved with Vanco and cefepime overnight. Dysuria is a bit better. Blood and urine cultures pending. Remains in SR with PACs. INR up to 4.5.
-Consult placed by me for ID input given h/o mechanical MVR.
-Cont Vanco and cefepime for now while cultures pending. Patient reports initial symptomatic improvement
-INRs managed by ATC with home fingersticks. INR goal 2.5 to 3.5. INR is 4.5 on 12/08/23. No dose of warfarin tonight. Recheck INR in AM.
-Remains in SR on tele. Check ECG, ordered by me.
-PVCs noted. Potassium 4.0. Magnesium level was 1.8 yesterday, recheck.
-Outpatient dose of Multaq stopped at time of ablation 12/06/23. If atrial arrhythmia recurs then would not restart Multaq, but would instead investigate the use of a type Ic agent keeping in mind that patient has hypertrophic cardiomyopathy
history. If wall thickness is less than 1.5 cm and QT interval allows would consider a type Ic drug if needed.
--- NOTE | 2023-12-08 13:45 | CM ---
Chart reviewed. CM introduced self and role. Patient's also in room. Patient lives in a multi-level home with his . He has 3 children for support. He works FT. He is independent, drives and owns no DME. His will provide transportation
once he is discharged from the hospital. Denies any +SDOHs. He has active PCP and pharmacy.
ANTICIPATED DISCHARGE DISPOSITION: Home with , when medically cleared.
--- NOTE | 2023-12-08 13:57 | CON.ID ---
Consultation
-
Date/Time Consultation Requested: December 08, 2023
Date/Time Consultation Performed: December 08, 2023 1400
Requesting Provider: Cee Howe PA-C
Performing Provider: Lilia Medina
Reason for Consultation: Fever and dysuria
Chief Complaint / Past History
Chief Complaint
Fever
History of Present Illness
63-year-old male with history of hypertension, HOCM, mechanical mitral valve replacement, symptomatic atrial fibrillation who recently underwent 4-hour procedure status post ablation under anesthesia on December 06, 2023. Patient noted to be
retaining urine requiring straight catheterization x 3 that evening. The next day patient was able to void and noted slight dysuria. He was discharged to home. Later that day the dysuria was worse. He also developed chills and low-grade
subjective fever. He therefore came back to the ER last night. He was afebrile. White count 11.4. Urine analysis with mild pyuria. He received Zosyn then vancomycin and cefepime. Patient reports dysuria slightly improved. No flank pain. No
chills since this morning. No headache. No cough or shortness of breath. No chest pain. No nausea vomit abdominal pain or diarrhea. No history of frequent UTI. No history of BPH.
Past History
Additional Past Medical History:
HTN
Hyperlipidemia
Pulmonary HTN
Afib s/p ablations
HOCM s/p septal myomectomy (06/2014)
Mechanical MV replacement (06/2014)
Appendectomy
Allergy History:
No Known Allergies Allergy (Verified 12/06/23 10:49)
Medications Reviewed: Yes
Current Antibiotics:
Vancomycin
Cefepime
Social History
Tobacco: Non-Smoker
Drug: None
Personal:
Family History
Family History: Not Pertinent
Review of Systems
Review of Systems
General: Negative Change in Appetite
HEENT: Negative Stiff Neck, Sinus Problems, Headache or Pharyngitis
Cardiovascular: Negative Chest Pain or Dyspnea
Respiratory: Negative Dyspnea or Cough
Gasteroenterology: Negative Nausea, Vomiting or Diarrhea
Genital / Urological: Negative Hematuria or Flank Pain
Endocrine: Negative Weakness
Skin / Hair / Nails: Negative Rash
Neurological: Headache; Negative Dizziness
All systems: All other systems were reviewed and were negative
Vital Signs
Temp Pulse Resp BP Pulse Ox
98.8 F 85 24 114/89 97
12/08/23 07:00 12/08/23 13:45 12/08/23 13:45 12/08/23 13:00 12/08/23 13:45
Physical Exam
Physical Exam
Constitutional: No Acute Distress and Comfortable
Eyes: No Conjunctival Hemorrhage and Sclera Anicteric
Cardiovascular: Regular Rate and S1/S2
Pulmonary: Clear
Gastrointestinal: Soft, Non Tender, Non Distended and Normal Bowel Sounds
Genito-Urinary: Negative Pollock, Suprapubic Tenderness or CVA Tenderness
Extremities: Negative Edema
Neurological: AO x 3
Lab / Diagnostic Study Results
12/08/23 06:03
12/08/23 06:03
Abs Immat Gran (auto) 0.0 10^3/uL (0-0.05) 12/07/23 20:12
Absolute Neuts (auto) 7.7 10^3/uL (1.4-6.5) H 12/07/23 20:12
Absolute Lymphs (auto) 2.6 10^3/uL (1.2-3.4) 12/07/23 20:12
Absolute Monos (auto) 1.0 10^3/uL (0.1-0.6) H 12/07/23 20:12
Absolute Basos (auto) 0.0 10^3/uL (0-0.2) 12/07/23 20:12
Immature Gran % 0.4 % (0-0.5) 12/07/23 20:12
Neutrophils % 67.6 % (42.2-75.2) 12/07/23 20:12
Lymphocytes % 22.5 % (20.5-51.1) 12/07/23 20:12
Monocytes % 8.8 % (1.7-9.3) 12/07/23 20:12
Eosinophils % 0.4 % (0-6) 12/07/23 20:12
Basophils % 0.3 % (0-2) 12/07/23 20:12
PT 43.1 Sec (11.4-14.6) H 12/08/23 06:03
INR 4.53 12/08/23 06:03
Ur Squamous Epith Cells 0-2 /LPF (Few) 12/07/23 17:39
Microbiology Results
Micro:
12/07/23 17:39 Urine Culture - Pending
Urine
12/07/23 23:28 Blood Culture - Pending
Blood/Venous
12/07/23 23:28 Blood Culture - Pending
Blood/Venous
Assessment / Plan
# Post procedure urinary retention now resolved
# Dysuria
# Reported chills
# Leukocytosis resolved
- UA with mild pyuria
- Await Ucx and bcx's.
-Narrow Vanco cefepime to ceftriaxone.
- follow temps
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
HTN
Hyperlipidemia
Pulmonary HTN
Afib s/p ablations
HOCM s/p septal myomectomy (06/2014)
Mechanical MV replacement (06/2014)
Appendectomy
--- NOTE | 2023-12-08 14:53 | PTCARENOTE ---
Received the patient from ED in a stretcher. The patient is aaox3, vss, 96% on RA. NSR with a 1st degree AVB, LBBB, with frequent PACs noted on the monitor. He complaints of 'some' dysuria and rates it a 2/10 on scale. Tylenol offered but he
declined. Updated the patient on his plan of care. His is at the bedside. His call mejias is within reach.
[2023-12-08] MEDS: THERAGRAN 1 TABLET PO (18:07)
[2023-12-08] MEDS: LIPITOR 10 MG PO (18:07)
[2023-12-08] MEDS: ROCEPHIN 1000 MG IV (18:08)
[2023-12-08] MEDS: FLUSH (NSS) 2 FLUSH IV (18:08)
--- NOTE | 2023-12-08 21:20 | PTCARENOTE ---
received the patient at the change of shift. AAOx3. independent in the room. SR on tele 60s-70s with PACs. bp stable. R groin site-dressing changed. site clean; mild ecchymosis. patient states improved pain with urination. yellow urine in the
urinal. educated patient to inform RN with any changes. calls appropriately.
[2023-12-08] MEDS: TYLENOL 650 MG PO (22:27)
[2023-12-09 04:05] VITALS: BP 108/77
[2023-12-09 04:39] LABS: INR 2.75; PT 29.4 Sec (11.4-14.6)
[2023-12-09 04:47] LABS: % Basophils 0.3 % (0-2); % Eosinophils 1.3 % (0-6); % Immature Granulocytes 0.3 % (0-0.5); % Lymphocytes 30.7 % (20.5-51.1); % Neutrophils 58.4 % (42.2-75.2); Absolute Eosinophils 0.1 10^3/uL (0-0.7); Absolute Lymphocytes 1.9 10^3/uL (1.2-3.4); Absolute Monocytes 0.6 10^3/uL (0.1-0.6); Absolute Neutrophils 3.7 10^3/uL (1.4-6.5); Hematocrit 36.1 % (39.0-52.0); Hemoglobin 12.4 g/dL (13.0-18.0); Mean Corp Hgb Conc. 34.3 g/dL (33.0-37.0); Mean Corpuscular Hgb 31.6 pg (27.0-31.0); Mean Corpuscular Volume 92.1 fL (80.0-94.0); Mean Platelet Volume 10.8 fL (7.4-10.4); Nucleated Red Blood Cells % 0 % (-); Platelet Count 135 10^3/uL (130-400); Red Blood Cell Count 3.92 10^6/uL (4.70-6.10); Red Cell Dist. Width 13.6 % (11.5-14.5); White Blood Cell Count 6.3 10^3/uL (4.8-10.8)
[2023-12-09 04:53] LABS: Blood Urea Nitrogen 17 mg/dl (9-20); Calcium 8.6 mg/dl (8.4-10.2); Carbon Dioxide 23 mmol/L (22-30); Chloride 108 mmol/L (98-107); Estimated Creatinine Clearance > 125 ml/min; Glucose 97 mg/dl (70-99); Potassium 4.2 mmol/L (3.5-5.1); Sodium 140 mmol/L (135-145); eGFR > 60.00
--- NOTE | 2023-12-09 07:40 | W.PN.CARDCBS ---
Addendum entered and electronically signed by Martin Sanchez MD 12/09/23 10:15:
I saw and examined the patient.
The Router Machine Operator's note was reviewed and I agree with the note.
Comment: Briefly, 63-year-old man past medical history of mechanical mitral valve and atrial fibrillation with multiple ablations including earlier this week
Presented to emergency department with dysuria and is being treated with IV antibiotics with concern for urinary tract infection
No cardiac complaints this morning
Maintaining sinus rhythm on review of telemetry
INR is back in range, would have him return to his normal Coumadin regimen and he is agreeable to this
Stable cardiac status
Original Note:
Today's Communication / Plan
-
Restart warfarin 5 mg HS tonight, INR check with fingerstick machine at home for goal of 2.5-3.5
Stable for d/c from cardiac standpoint
Impression / Plan
-
Primary Care Provider: Dr Francisco Baires
Primary Security System Installer: Dr. Beny House
Impression:
Admitted with dysuria and possible UTI 12/07/23
s/p PVI with reisolation at left PV bello and additional lesions at left atrial posterior wall, mapping and ablation of second Atach/MV annular flutter 12/06/23
Recurrent symptomatic atrial tachycardia
s/p right atrial flutter ablation 06/2012
s/p CAFE and LA tachycardia ablation with no recurrent arrhythmias for approx 2 years off AAD Rx 11/2012
Recurrent AF and AT (left atrial) after redo sternotomy 06/2014, CV'ed 08/2014 at which time amio was started and CV'ed again 09/13/14
s/p LA tach ablation 02/2017
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
s/p MV Repair with 34 mm Ring and septal myectomy 06/2014
s/p redo sternotomy and mechanical MV replacement for most-MV repair mod to sev MR and BENY 06/2014
Chronic warfarin OAC managed by ATC
LBBB
HTN
Hyperlipidemia
Pulmonary HTN
HOCM with surgical repair (see above)
Echo 2017: EF 60%, no WMA, trace MR
Plan:
-Afebrile overnight and WBC back to normal. ID consult reviewed.
-Blood cultures without growth. Urine culture pending.
-INR 4.53 on admission and warfarin dose held overnight. INR down to 2.75 on 12/09/23. Restart warfarin 5 mg HS 12/09/23 PM.
-INRs managed by ATC with home fingersticks. INR goal 2.5 to 3.5. Patient can recheck INR on his own this or Wednesday and manage dose accordingly. Will update ATC as well.
-Remains in SR on tele reviewed by me
-PVCs noted. Potassium 4.2 and magnesium level 2.0.
-Outpatient dose of Multaq stopped at time of ablation 12/06/23. If atrial arrhythmia recurs then would not restart Multaq, but would instead investigate the use of a type Ic agent keeping in mind that patient has hypertrophic cardiomyopathy
history. If wall thickness is less than 1.5 cm and QT interval allows would consider a type Ic drug if needed. Last available echo in the [facility] system is from 2017 and summarized above.
-Stable for d/c from a cardiac standpoint.
HPI: Patient came to [facility] last night with dysuria after recent ablation and was admitted for possible UTI and cardiology is consulted for recent ablation and h/o mechanical MVR. Patient has a h/o MR and MVP and had ablations in 2012 and then had MV
surgery in 2014. Patient had MV repair and then on post-op echo prior to d/c was noted to have moderate to severe MR and was taken back to the OR for mechanical MV replacement. After redo sternotomy patient noted to have recurrent Afib/tach and was
CV'd and started on amiodarone and did well for years. He had another ablation in 2017 and then had another ablation this past Wednesday. Patient's case ended in the evening and the plan was made for overnight admission. Patient had urinary retention
and required straight cath. Patient with some dysuria prior to d/c on Wednesday, but felt well enough otherwise to go home. Within hours of being at home dysuria worsened and temp up to 99.5 degrees Fahrenheit at home so [facility] Mild
elevation in WBC to 11.4 that has improved with Vanco and cefepime overnight. Dysuria is a bit better. Blood and urine cultures pending. Remains in SR with PACs. INR up to 4.5.
Progress Note - Security System Installer
Subjective
Date of Service: December 09, 2023
Feels well
Objective
Labs:
12/09/23 04:11
12/09/23 04:11
Labs
Hgb 12.4 g/dL (13.0-18.0) L 12/09/23 04:11
Hct 36.1 % (39.0-52.0) L 12/09/23 04:11
Plt Count 135 10^3/uL (130-400) 12/09/23 04:11
PT 29.4 Sec (11.4-14.6) H 12/09/23 04:11
INR 2.75 12/09/23 04:11
Sodium 140 mmol/L (135-145) 12/09/23 04:11
Potassium 4.2 mmol/L (3.5-5.1) 12/09/23 04:11
BUN 17 mg/dl (9-20) 12/09/23 04:11
Creatinine 0.6 mg/dL (0.7-1.3) L 12/09/23 04:11
Glucose 97 mg/dl (70-99) 12/09/23 04:11
Vital Signs and I&O:
Vital Signs
Temp Pulse Resp BP Pulse Ox
98.4 F 60 18 108/77 98
12/09/23 04:15 12/09/23 05:00 12/09/23 04:15 12/09/23 04:05 12/09/23 04:15
Vital Signs
Temp Pulse Resp BP Pulse Ox
98.4 F 60 18 108/77 98
12/09/23 04:15 12/09/23 05:00 12/09/23 04:15 12/09/23 04:05 12/09/23 04:15
Intake & Output
12/07/23 12/08/23 12/09/23 12/10/23
06:59 06:59 06:59 06:59
Intake Total 360 / 360
Output Total 375 / 375
Balance -15 -15
Physical Exam
Physical Exam
GEN: NAD. AAOx3
HEENT: MMM
LUNGS: No audible wheeze
CV: SR with PVCs on tele
ABD: ND
EXT: No edema B/L
NEURO: Gross non-focal
SKIN: No rash
[2023-12-09 08:04] VITALS: BP 120/93
--- NOTE | 2023-12-09 09:49 | CM ---
Reviewed chart. Mr. De La Cruz was transferred to IVU. Met with Mr. De La Cruz to review discharge plans. He states he is feeling well and maybe able to go home soon. He states prior to admission he resides with his spouse in a two story home with three
steps to enter. He states he has a full flight of steps to get to bedroom/full bathroom. He states he has a powder room on the first floor. He states prior to admission he was independent with ambulation and adls. He states he does not have any DME
in the home. He states he has a prescription plana nd uses [facility]. Medical work-up in progress. The discharge plan is to return home with his spouse when medically stable.
--- NOTE | 2023-12-09 11:50 | W.DS.TRANS ---
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
-
Discharge Instructions:
Discharge Diagnosis/Procedures Transient fever with unrevealing workup
Resolved urinary retention
Diet Regular
Instructions:
Stand-Alone Forms: DC Instructions- Cath/EP Lab
Changes to Home Medications: No
Discharge Medications:
DC Medications w/original date entered in [employer]
atorvastatin 10 mg tablet 10 mg PO QPM 03/09/17
multivitamin 1 tab PO QPM 12/06/23
warfarin 5 mg tablet 5 mg PO DAILY Blood clot prevention/tx #30 tabs 12/09/23
Home Medication Changes
Pending Results: No
[2023-12-09 11:51] VITALS: BP 137/97
[2023-12-09 12:51] VITALS: BMI 26.4
== END 2023-12-09 13:55 | disposition home or self-care (01) | DRG 864 ==
LOC: IVU 00:16
PROVIDERS: Emergency Medicine; ADMITTING PHYSICIAN Internal Medicine; ATTENDING PHYSICIAN Internal Medicine; EMERGENCY PHYSICIAN Emergency Medicine; FAMILY PHYSICIAN Family Medicine; OTHER PHYSICIAN Internal Medicine Cardiovascular Disease; OTHER PHYSICIAN Internal Medicine Infectious Disease
DX: R50.9 Fever, unspecified (principal); I48.19 Other persistent atrial fibrillation; I42.1 Obstructive hypertrophic cardiomyopathy; I47.19 Other supraventricular tachycardia; R30.0 Dysuria; I44.7 Left bundle-branch block, unspecified; I34.1 Nonrheumatic mitral (valve) prolapse; I27.20 Pulmonary hypertension, unspecified; I10 Essential (primary) hypertension; E78.5 Hyperlipidemia, unspecified; D72.829 Elevated white blood cell count, unspecified; I34.0 Nonrheumatic mitral (valve) insufficiency; Z79.01 Long term (current) use of anticoagulants; Z95.2 Presence of prosthetic heart valve; Z98.890 Other specified postprocedural states
CPT/HCPCS: 80048; 80053; 81003; 81015; 83735; 85025; 85027; 85610; 87040; 87086